=== PATIENT | male | born 1940 | race Caucasian/White ===

== ENCOUNTER 2017-05-25 10:12 | Emergency (ER) | payer MEDICARE, BC ==
[2017-05-25] MEDS: Aspirin 81 MG Tab.Chew PO ONE (12:00)
--- NOTE | 2017-05-25 12:11 | EDM.PDOC ---
ED HPI GENERAL MEDICAL PROBLEM - General Chief Complaint: Chest Pain Stated Complaint: Chest pain Time Seen by Provider: 05/25/17 10:20 Source of Information: Reports: Patient, Family () History Limitations: Reports: No Limitations - History of Present Illness Onset: Today, Sudden Onset Date: 05/25/17 Onset Time: 00:35 Duration: Hour(s):, Constant, Resolved Prior to Arrival Location: Reports: Chest, Back, Upper Extremity, Left Quality: Reports: Ache Severity: Moderate Improves with: Reports: Medication (aspirin) Worsens with: Reports: Other Associated Symptoms: Reports: Chest Pain, Diaphoresis, Shortness of Breath. 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 - Related Data Allergies Allergy/AdvReac Type Severity Reaction Status Date / Time No Known Drug Allergies Allergy Other Verified 05/25/17 11:06 Home Meds: Home Meds Allopurinol [Zyloprim] 300 mg PO DAILY 05/25/17 [History] Aspirin [Adult Low Dose Aspirin EC] 81 mg PO DAILY 05/25/17 [History] Atenolol [Tenormin] 50 mg PO DAILY 05/25/17 [History] Calcitriol [Calcitriol] 0.25 mcg PO MOWEFR 05/25/17 [History] Cholecalciferol (Vitamin D3) [Vitamin D3] 2,000 unit PO DAILY 05/25/17 [History] Dulaglutide [Trulicity] 1.5 mg SUBCUT WEEKLY 05/25/17 [History] Ferrous Sulfate [Iron] 325 mg PO BID 05/25/17 [History] Hydrochlorothiazide 12.5 mg PO DAILY 05/25/17 [History] Nateglinide [Nateglinide] 120 mg PO TID 05/25/17 [History] Pioglitazone [Actos] 30 mg PO DAILY 05/25/17 [History] Sertraline HCl [Zoloft] 50 mg PO DAILY 05/25/17 [History] amLODIPine Besylate [Amlodipine Besylate] 10 mg PO DAILY 05/25/17 [History] atorvaSTATin [Lipitor] 20 mg PO BEDTIME 05/25/17 [History] traZODone HCl [Trazodone HCl] 25 mg PO BEDTIME 05/25/17 [History] Past Medical History Cardiovascular History: Reports: CAD, High Cholesterol, Hypertension, [place] Psychiatric History: Reports: Depression Endocrine/Metabolic History: Reports: Diabetes, Type II, Obesity/BMI 30+ Social & Family History - Tobacco Use Smoking Status *Q: Never Smoker Second Hand Smoke Exposure: No - Caffeine Use Caffeine Use: Reports: Coffee, Soda - Recreational Drug Use Recreational Drug Use: No ED ROS GENERAL - Review of Systems Review Of Systems: See Below Constitutional: Reports: Diaphoresis (denies currently, but reports that he was clamy me this morning when he went in clinic) HEENT: Reports: No Symptoms Respiratory: Reports: Shortness of Breath. Denies: Pleuritic Chest Pain, Cough Cardiovascular: Reports: Chest Pain, Blood Pressure Problem, Dyspnea on Exertion. Denies: Claudication, Lightheadedness, Palpitations, PND, Syncope Endocrine: Reports: High Glucose GI/Abdominal: Denies: Abdominal Pain, Diarrhea, Nausea, Vomiting : Reports: No Symptoms Musculoskeletal: Reports: Shoulder Pain (left shoulder, resolved.), Back Pain ( upper back) Skin: Denies: Cyanosis, Jaundice, Rash, Change in Hair/Nails Neurological: Denies: Confusion, Dizziness, Headache, Numbness, Paresthesia, Syncope, Tingling, Trouble Speaking, Difficulty Walking, Change in Speech Psychiatric: Reports: Depression (h/o) Hematologic/Lymphatic: Reports: No Symptoms Immunologic: Reports: No Symptoms ED EXAM, GENERAL - Physical Exam Exam: See Below Exam Limited By: No Limitations General Appearance: Alert, WD/WN, No Apparent Distress, Obese Eye Exam: Bilateral Eye: PERRL Ears: Hearing Grossly Normal Nose: Normal Inspection Throat/Mouth: Normal Inspection, Normal Lips, Normal Voice, No Airway Compromise Head: Atraumatic, Normocephalic Neck: Normal Inspection, Supple, Non-Tender, Full Range of Motion. No: Carotid Bruit, Lymphadenopathy (L), Lymphadenopathy (R) Respiratory/Chest: No Respiratory Distress, Lungs Clear, Normal Breath Sounds, No Accessory Muscle Use, Chest Non-Tender Cardiovascular: Normal Peripheral Pulses, Regular Rate, Rhythm, No Edema, No JVD , No Murmur Peripheral Pulses: 2+: Carotid (L), Carotid (R), Radial (L), Radial (R), Dorsalis Pedis (L), Dorsalis Pedis (R) GI/Abdominal: Normal Bowel Sounds, Soft, Non-Tender, No Organomegaly, No Distention Back Exam: Normal Inspection, Full Range of Motion Extremities: Normal Inspection, Normal Range of Motion, No Pedal Edema, Normal Capillary Refill Neurological: Alert, Oriented, CN II-XII Intact, Normal Cognition, No Motor/ Sensory Deficits Psychiatric: Normal Affect, Normal Mood Skin Exam: Warm, Dry, Intact, Normal Color, No Rash. No: Diaphoretic Lymphatic: No Adenopathy EKG INTERPRETATION EKG Date: 05/25/17 Time: 10:29 Rhythm: NSR [place]: Normal P-Wave: Absent QRS: Normal ST-T: Normal QT: Normal Comparison: NA - No Prior EKG EKG Interpretation Comments: Sinus rhythm with first degree AV block Right bundle branch block Abnormal ECG Course - Vital Signs Last Recorded V/S: Last Vital Signs Temp 98.1 F 05/25/17 10:55 Pulse 76 05/25/17 10:55 Resp 20 05/25/17 10:55 BP 165/75 H 05/25/17 10:55 Pulse Ox 96 05/25/17 10:55 - Orders/Labs/Meds Orders: Active Orders 24 hr Category Date Time Status EKG Documentation Completion [RC] ASDIRECTED Care 05/25/17 10:35 Active Chest 2V [CR] Stat Exams 05/25/17 10:36 Taken EKG 12 Lead [EK] Routine Ther 05/25/17 10:35 Ordered Labs: Laboratory Tests 05/25/17 05/25/17 Range/Units 10:52 10:52 WBC 13.0 H (5.0-10.0) 10^3/uL RBC 4.77 (4.50-6.00) 10^6/uL Hgb 12.9 L (13.0-17.0) g/dL Hct 41.4 (40.0-52.0) % MCV 86.7 (82.0-92.0) fL MCH 27.1 (27.0-31.0) pg MCHC 31.3 L (32.0-36.0) g/dL RDW 14.5 (11.5-14.5) % Plt Count 338 H (150-300) 10^3/uL MPV 7.0 L (7.4-10.4) fL Neut % (Auto) 82.3 H (50.0-70.0) % Lymph % (Auto) 8.7 L (20.0-40.0) % [place] % (Auto) 6.7 (2.0-8.0) % Eos % (Auto) 2.2 (1.0-3.0) % Baso % (Auto) 0.1 (0.0-1.0) % Neut # (Auto) 10.7 H (2.5-7.0) 10^3/uL Lymph # (Auto) 1.1 (1.0-4.0) 10^3/uL [place] # (Auto) 0.9 H (0.1-0.8) 10^3/uL Eos # (Auto) 0.3 (0.1-0.3) 10^3/uL Baso # (Auto) 0.0 (0.0-0.1) 10^3/uL Sodium 141 (136-145) mmol/L Potassium 4.9 (3.3-5.3) mmol/L Chloride 104 (98-115) mmol/L Carbon Dioxide 27.4 (21.0-32.0) mmol/L BUN 31 H (6-25) mg/dL Creatinine 1.48 H (0.51-1.17) mg/dL Est Cr Clr Drug Dosing 46.61 mL/min Estimated GFR (MDRD) 46 mL/min Glucose 167 H (70-110) mg/dL Calcium 9.1 (8.7-10.3) mg/dL Troponin I 0.07 (0.00-0.070) ng/mL Meds: Medications Discontinued Medications Generic Name Dose Route Start Last Admin Trade Name Tomq PRN Reason Stop Dose Admin Aspirin 324 mg 05/25/17 10:36 05/25/17 12:00 Aspirin PO 05/25/17 10:37 Not Given ONETIME ONE Departure - Departure Time of Disposition: 12:30 Disposition: Home, Self-Care 01 Condition: Good Clinical Impression: Atypical chest pain Instructions: Angina Pectoris, [id number] Referrals: Magalys Stephen PA-C [Primary Care Provider] - Forms: ED Department Discharge Additional Instructions: Patient was instructed to return to the emergency department if: 1. Chest discomfort lasted greater than 5 minutes 2. Chest discomfort gets worse in any way 3. History of angina, and discomfort not relieved by his medications, aspirin. 4. Shortness of breath, sweats dizziness vomiting, or nausea with chest pain or chest discomfort 5. Chest discomfort moves into your arm, neck, back, jaw, or stomach. 6. Your instructed to rest until follow-up with your primary care. You are not to exert yourself with physical activity. 7. Follow-up appointment is scheduled for tomorrow with her primary care. I have discussed this with your primary care on telephone. - My Orders Last 24 Hours: My Active Orders 05/25/17 10:35 EKG Documentation Completion [RC] ASDIRECTED EKG 12 Lead [EK] Routine 05/25/17 10:36 Chest 2V [CR] Stat - Assessment/Plan Last 24 Hours: My Active Orders 05/25/17 10:35 EKG Documentation Completion [RC] ASDIRECTED EKG 12 Lead [EK] Routine 05/25/17 10:36 Chest 2V [CR] Stat Assessment:: Atypical chest pain Plan: Patient was instructed to return to the emergency department if: 1. Chest discomfort lasted greater than 5 minutes 2. Chest discomfort gets worse in any way 3. History of angina, and discomfort not relieved by his medications, aspirin. 4. Shortness of breath, sweats dizziness vomiting, or nausea with chest pain or chest discomfort 5. Chest discomfort moves into your arm, neck, back, jaw, or stomach. 6. Your instructed to rest until follow-up with your primary care. You are not to exert yourself with physical activity. 7. Follow-up appointment is scheduled for tomorrow with her primary care. I have discussed this with your primary care on telephone. 8. Cardiology consultation, f/u.
== END 2017-05-25 12:30 | disposition home or self-care (01) ==
LOC: KA.ED 10:12
DX: R07.89 Other chest pain (principal); E78.00 Pure hypercholesterolemia, unspecified; I10 Essential (primary) hypertension; E11.9 Type 2 diabetes mellitus without complications; Z79.82 Long term (current) use of aspirin; Z79.899 Other long term (current) drug therapy
CPT/HCPCS: 36415; 71046; 80048; 84484; 85025; 93005; 99285

== ENCOUNTER 2021-10-01 10:37 | Emergency (ER) | payer MEDICARE, BC ==
[2021-10-01 11:27] LABS: ANION GAP 12.5 mmol/L (5-15)
== END 2021-10-01 12:49 | disposition home or self-care (01) ==
LOC: KA.ED 10:37
DX: R53.1 Weakness (principal); M79.10 Myalgia, unspecified site; E10.22 Type 1 diabetes mellitus with diabetic chronic kidney disease; I12.9 Hypertensive chronic kidney disease with stage 1 through stage 4 chronic kidney disease, or unspecified chronic kidney disease; N18.30 Chronic kidney disease, stage 3 unspecified; I25.10 Atherosclerotic heart disease of native coronary artery without angina pectoris; E78.00 Pure hypercholesterolemia, unspecified; I25.2 Old myocardial infarction; E66.9 Obesity, unspecified; Z68.30 Body mass index [BMI] 30.0-30.9, adult; Z79.82 Long term (current) use of aspirin; Z79.899 Other long term (current) drug therapy
CPT/HCPCS: 36415; 73030-LT; 73030-RT; 80053; 81001; 82550; 84550; 85025; 86140; 99284; 99285

== ENCOUNTER 2023-06-13 10:09 | Emergency (ER) | payer BC, MEDICARE ==
[2023-06-13 10:39] LABS: BASOPHILS ABSOLUTE AUTO 0.02 10^3/uL (0.00-0.10); BASOPHILS PERCENT AUTO 0.2 % (0.0-1.0); EOSINOPHILS ABSOLUTE AUTO 0.29 10^3/uL (0.10-0.30); EOSINOPHILS PERCENT AUTO 2.8 % (1.0-3.0); HEMATOCRIT 36.5 % (40.0-52.0); HEMOGLOBIN 11.2 g/dL (13.0-17.0); IMMATURE GRAN ABSOLUTE AUTO 0.03 10^3/uL (0.00-0.50); IMMATURE GRAN PERCENT AUTO 0.3 % (0.0-5.0); LYMPHOCYTES PERCENT AUTO 7.6 % (20.0-40.0); MEAN CORPUSCULAR HEMOGLOBIN 28.6 pg (27.0-31.0); MEAN CORPUSCULAR HGB CONC 30.7 g/dL (32.0-36.0); MEAN CORPUSCULAR VOLUME 93.4 fL (82.0-92.0); MEAN PLATELET VOLUME 10.3 fL (7.4-10.4); MONOCYTES ABSOLUTE AUTO 0.46 10^3/uL (0.10-0.80); MONOCYTES PERCENT AUTO 4.4 % (2.0-8.0); NEUTROPHILS ABSOLUTE AUTO 8.89 10^3/uL (2.50-7.00); NEUTROPHILS PERCENT AUTO 84.7 % (50.0-70.0); PLATELET COUNT,PLT 262 10^3/uL (150-400); RED BLOOD CELL COUNT 3.91 10^6/uL (4.50-6.00); RED CELL DISTRIBUTION WIDTH 13.4 % (11.5-14.5); WHITE BLOOD CELL COUNT,WBC 10.49 10^3/uL (5.00-10.00)
[2023-06-13] MEDS: Sodium Chloride 0.9% 1,000 ML IV SCH (10:40)
[2023-06-13 10:57] LABS: ANION GAP 15.1 mmol/L (5-15); BLOOD UREA NITROGEN,BUN 35 mg/dL (7-18); CALCIUM 8.1 mg/dL (8.7-10.3); CARBON DIOXIDE,CO2 23.8 mmol/L (21.0-32.0); CHLORIDE,CL 109 mmol/L (98-107); CREATININE 2.31 mg/dL (0.51-1.17); GLUCOSE RANDOM 196 mg/dL (70-140); POTASSIUM,K 5.9 mmol/L (3.5-5.1); SODIUM,NA 142 mmol/L (136-145)
[2023-06-13 11:02] LABS: ESTIMATED GFR 28 mL/min (>=60)
[2023-06-13] MEDS: fentaNYL 100 MCG/2 ML SDV IVPUSH ONE (11:05)
[2023-06-13] MEDS: Midazolam 1 MG/ML 2 ML SDV IVPUSH ONE ×2 (11:06→11:23)
[2023-06-13] MEDS: Sodium Chloride 0.9% 1,000 ML ONE (17:58)
[2023-06-13] MEDS ORDERED: Sodium Chloride 0.9% 1,000 ML IV SCH (18:00)
[2023-06-13] MEDS: Midazolam 1 MG/ML 2 ML SDV ONE (18:06)
[2023-06-13] MEDS: fentaNYL 100 MCG/2 ML SDV ONE (18:06)
== END 2023-06-13 11:32 ==
LOC: KA.ED 10:09
DX: I44.2 Atrioventricular block, complete (principal); I10 Essential (primary) hypertension; I25.10 Atherosclerotic heart disease of native coronary artery without angina pectoris; I25.2 Old myocardial infarction; E78.00 Pure hypercholesterolemia, unspecified; E66.9 Obesity, unspecified; E11.9 Type 2 diabetes mellitus without complications; Z79.899 Other long term (current) drug therapy
CPT/HCPCS: 36415; 80048; 84484; 85025; 96361; 96374; 96375; 99285; J2250; J3010; J7030; Q3014; 93005; 93010; 99284

== ENCOUNTER 2023-10-26 09:52 | Day surgery (SDC) | payer MEDICARE, OTHER ==
[2023-10-26] MEDS ORDERED: Sodium Chloride 0.9% 10 ML Syringe FLUSH PRN (10:00)
[2023-10-26] MEDS ORDERED: Midazolam 1 MG/ML 2 ML SDV ONE (10:11)
[2023-10-26] MEDS ORDERED: Propofol 200 MG/20 ML SDV ONE (10:12)
[2023-10-26] MEDS: Sodium Chloride 0.9% 1,000 ML IV SCH (10:15)
[2023-10-26 10:42] LABS: GLUCOSE,POC 122 mg/dL (70-140)
== END 2023-10-26 13:58 | disposition home or self-care (01) ==
LOC: KA.SDS 09:52
PROVIDERS: ATTEND Family Medicine
DX: Z12.11 Encounter for screening for malignant neoplasm of colon (principal); K57.30 Diverticulosis of large intestine without perforation or abscess without bleeding; E11.22 Type 2 diabetes mellitus with diabetic chronic kidney disease; I12.9 Hypertensive chronic kidney disease with stage 1 through stage 4 chronic kidney disease, or unspecified chronic kidney disease; N18.30 Chronic kidney disease, stage 3 unspecified; E78.2 Mixed hyperlipidemia; I25.10 Atherosclerotic heart disease of native coronary artery without angina pectoris
CPT/HCPCS: 82947; J2250; J2704; J3490; J7030

== ENCOUNTER 2023-12-21 07:02 | Day surgery (SDC) | payer MEDICARE ==
[~2023-12-21 07:02] MED LIST: Sodium Chloride 0.9% 10 ML Syringe FLUSH PRN
[2023-12-21] MEDS: Sodium Chloride 0.9% 1,000 ML IV SCH (07:25)
[2023-12-21] MEDS ORDERED: Propofol 200 MG/20 ML SDV ONE (07:51)
[2023-12-21] MEDS ORDERED: Midazolam 1 MG/ML 2 ML SDV ONE (07:51)
== END 2023-12-21 10:50 | disposition home or self-care (01) ==
LOC: KA.SDS 07:02
PROVIDERS: ATTEND Family Medicine
DX: Z12.11 Encounter for screening for malignant neoplasm of colon (principal); D12.0 Benign neoplasm of cecum; D12.6 Benign neoplasm of colon, unspecified; K57.30 Diverticulosis of large intestine without perforation or abscess without bleeding; I25.10 Atherosclerotic heart disease of native coronary artery without angina pectoris; I48.91 Unspecified atrial fibrillation; I12.9 Hypertensive chronic kidney disease with stage 1 through stage 4 chronic kidney disease, or unspecified chronic kidney disease; E11.22 Type 2 diabetes mellitus with diabetic chronic kidney disease; N18.30 Chronic kidney disease, stage 3 unspecified; E78.2 Mixed hyperlipidemia; Z79.01 Long term (current) use of anticoagulants; Z79.899 Other long term (current) drug therapy
CPT/HCPCS: 00811; 45380; 82947; J2250; J2704; J7030; 88305; J3490

== ENCOUNTER 2024-06-29 17:37 | Emergency (ER) | payer MEDICARE ==
[2024-06-29 19:07] LABS: BASOPHILS ABSOLUTE AUTO 0.02 10^3/uL (0.00-0.10); BASOPHILS PERCENT AUTO 0.2 % (0.0-1.0); EOSINOPHILS ABSOLUTE AUTO 0.25 10^3/uL (0.10-0.30); EOSINOPHILS PERCENT AUTO 2.1 % (1.0-3.0); HEMOGLOBIN 13.2 g/dL (13.0-17.0); IMMATURE GRAN ABSOLUTE AUTO 0.03 10^3/uL (0.00-0.04); IMMATURE GRAN PERCENT AUTO 0.3 % (0.0-0.4); LYMPHOCYTES ABSOLUTE AUTO 1.76 10^3/uL (1.00-4.00); LYMPHOCYTES PERCENT AUTO 14.8 % (20.0-40.0); MEAN CORPUSCULAR HEMOGLOBIN 28.9 pg (27.0-31.0); MEAN CORPUSCULAR HGB CONC 33.8 g/dL (32.0-36.0); MEAN CORPUSCULAR VOLUME 85.3 fL (82.0-92.0); MEAN PLATELET VOLUME 9.8 fL (7.4-10.4); MONOCYTES ABSOLUTE AUTO 0.95 10^3/uL (0.10-0.80); NEUTROPHILS ABSOLUTE AUTO 8.89 10^3/uL (2.50-7.00); NEUTROPHILS PERCENT AUTO 74.6 % (50.0-70.0); PLATELET COUNT,PLT 280 10^3/uL (150-400); RED BLOOD CELL COUNT 4.57 10^6/uL (4.50-6.00); RED CELL DISTRIBUTION WIDTH 14.4 % (11.5-14.5)
[2024-06-29] MEDS: Aspirin 81 MG Tab.Chew ONE (19:18)
[2024-06-29] MEDS: Aspirin 81 MG Tab.Chew PO ONE (19:18)
[2024-06-29 19:24] LABS: ANION GAP 14.2 mmol/L (5-15); CARBON DIOXIDE,CO2 25.2 mmol/L (21.0-32.0); CREATININE 2.69 mg/dL (0.51-1.17); EST CRCL DRUG DOSING (CG) 22.16 mL/min; POTASSIUM,K 4.4 mmol/L (3.5-5.1)
[2024-06-29 20:07] LABS: INR 1.1 (0.9-1.1); PROTHROMBIN TIME 11.2 SEC (9.1-12.0); PTT,PARTIAL THROMBOPLSTIN TIME 25.6 SEC (21.6-32.4)
== END 2024-06-29 20:11 ==
LOC: KA.ED 17:37
DX: I21.4 Non-ST elevation (NSTEMI) myocardial infarction (principal); I48.91 Unspecified atrial fibrillation; I25.10 Atherosclerotic heart disease of native coronary artery without angina pectoris; I25.2 Old myocardial infarction; I12.9 Hypertensive chronic kidney disease with stage 1 through stage 4 chronic kidney disease, or unspecified chronic kidney disease; N18.30 Chronic kidney disease, stage 3 unspecified; E11.22 Type 2 diabetes mellitus with diabetic chronic kidney disease; E66.9 Obesity, unspecified; Z68.29 Body mass index [BMI] 29.0-29.9, adult; Z90.49 Acquired absence of other specified parts of digestive tract; Z88.8 Allergy status to other drugs, medicaments and biological substances; Z79.01 Long term (current) use of anticoagulants; Z79.899 Other long term (current) drug therapy
CPT/HCPCS: 36415; 70450; 70486; 71045; 80048; 83880; 84484; 85025; 85610; 85730; 93005; 99285; A9270-GY